=== PATIENT | male | born 1960 | race African-American/Black ===

== ENCOUNTER 2017-11-09 21:05 | Emergency (ER) | payer OTHER ==
[~2017-11-09] VITALS: Ht 172.7 cm; Wt 97.1 kg
[~2017-11-09 21:05] MED LIST: ASPIRIN EC81 M1 PO; ATORVASTATIN CA40 MG PO; BAYER BACK & B1 EACH PO; CALCIUM CARBO1000 MG PO; CHANTIX1 MG; FLEXERIL PO; GLUCOPHAGE XR500 MG PO; GLUCOPHAGE500 MG PO; HYDROCODON-ACE1 EAC7 PO; LEVAQUIN 500 M500 M2; LEVAQUIN 500 M500 M2 PO; LISINOPRIL20 MG PO; LISINOPRIL40 MG PO; MEDROLDOSEPACK; MULTIVITAMINS PO; NABUMETONE 750750 M1 PO; NORCO 5-325 TA1 EACH PO; PREDNISONE 20 M20 M1 PO; PRINIVIL20 MG PO; PROAIR HFA8.5 GM IH; PROAIR HFA8.5 GM INH; PROMETHAZINE-C120 ML PO; PROVENTIL HFA6.7 G1; TOPROL XL25 MG PO; TOPROL XL50 MG PO; Tamiflu PO
[2017-11-09] MEDS ORDERED: PREDNISONE 20 M20 MG PO (21:41)
[2017-11-09] MEDS ORDERED: TRIAMCINOLONE A80 G2 TOP (21:41)
== END 2017-11-09 21:49 | disposition home or self-care (01) ==
LOC: ER 21:05
DX: L25.9 Unspecified contact dermatitis, unspecified cause (principal); I10 Essential (primary) hypertension; E11.9 Type 2 diabetes mellitus without complications; E78.5 Hyperlipidemia, unspecified; F17.210 Nicotine dependence, cigarettes, uncomplicated

== ENCOUNTER 2018-07-26 15:27 | Emergency (ER) | payer OTHER ==
[~2018-07-26] VITALS: Ht 170.2 cm; Wt 95.3 kg
[~2018-07-26 15:27] MED LIST changes: +ANTIVERT25 MG PO; +PREDNISONE 20 M20 MG PO; +TRIAMCINOLONE A80 G2 TOP; +ZPAK PO
[2018-07-26 17:44] LABS: URINE BILIRUBIN NEGATIVE (Negative); URINE BLOOD NEGATIVE (Negative); URINE CLARITY CLEAR; URINE COLOR YELLOW; URINE GLUCOSE-RANDOM* NEGATIVE (Negative); URINE KETONES NEGATIVE (Negative); URINE LEUKOCYTES-REFLEX NEGATIVE (Negative); URINE NITRITE-REFLEX NEGATIVE (Negative); URINE PROTEIN (DIPSTICK) NEGATIVE (Negative); URINE SPECIFIC GRAVITY 1.015 (1.005-1.035); URINE UROBILINOGEN 0.2 E.U./dl (0.2-1.0)
[2018-07-26 19:11] LABS: ABSOLUTE NEUTROPHILS 3.9 thou/uL (1.4-8.2); BASOPHILS 0.7 % (0.0-2.0); EOSINOPHILS 1.9 % (0.0-3.0); HEMATOCRIT 37.7 % (42.0-52.0); HEMOGLOBIN 12.7 gm/dL (14.0-18.0); LYMPHOCYTES 25.8 % (24.0-44.0); MCH 30.2 pg (26.0-34.0); MCHC 33.7 g/dL (28.0-37.0); MCV 89.6 fL (80.0-100.0); MONOCYTES 7.7 % (1.0-8.0); PLATELET COUNT 212 thou/uL (150-400); POLYS 63.9 % (36.0-66.0); RBC 4.21 mil/uL (4.50-6.00); RDW 14.4 % (10.5-14.5); WBC 6.1 thou/uL (4.0-11.0)
[2018-07-26 19:23] LABS: ANION GAP 6 mmol/L (7-16); BUN 14 mg/dL (7-18); CALCIUM 9.1 mg/dL (8.5-10.1); CHLORIDE 106 mmol/L (98-107); CO2 27 mmol/L (21-32); CREATININE 1.1 mg/dL (0.7-1.3); GLUCOSE 138 mg/dL (74-106); POTASSIUM 4.6 mmol/L (3.5-5.1); SODIUM 139 mmol/L (136-145)
[2018-07-26 19:30] LABS: ALBUMIN 3.7 g/dL (3.4-5.0); SGOT 17 U/L (15-37); SGPT 30 U/L (30-65); TOTAL BILIRUBIN 0.3 mg/dL (<0.1-1.0); TOTAL PROTEIN 6.9 g/dL (6.4-8.2); TROPONIN-I <0.06 ng/mL (<0.06)
[2018-07-26] MEDS ORDERED: ONDANSETRON HCL4 M2 PO (21:48)
[2018-07-26] MEDS ORDERED: MECLIZINE HCL25 MG PO (21:48)
[2018-07-26 22:46] VITALS: BP 129/91
--- NOTE | 2018-07-27 13:39 | EKG ---
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1960 Requested By: Lori Mathew Order Number: [id number] MD: Deion Tlilman Measurements Intervals [place] Rate: 79 P: 29 [place]: 160 QRS: 45 QRSD: 88 T: -1 QT: 368 QTc: 422 Interpretive Statements Sinus rhythm Probable anteroseptal infarct, old Borderline T abnormalities, inferior leads Compared to ECG 01/25/2018 01:14:47 T-wave abnormality now present Electronically Signed On 07-27-2018 13:39:27 CDT by Deion Tillman [email or web address] ��������������������������������������������� <ELECTRONICALLY SIGNED> ���������������������������������������� By: Deion Tillman MD, [facility] ��������������������������������������������� 07/27/18 1339 165 56 Deion Tillman MD, [facility] /EPI
== END 2018-07-26 22:48 | disposition home or self-care (01) ==
LOC: ER 15:27
PROVIDERS: Physician Assistant
DX: R42 Dizziness and giddiness (principal); R09.81 Nasal congestion; H92.09 Otalgia, unspecified ear; F17.210 Nicotine dependence, cigarettes, uncomplicated; E11.9 Type 2 diabetes mellitus without complications; I10 Essential (primary) hypertension; E78.5 Hyperlipidemia, unspecified

== ENCOUNTER → 2019-07-28 | Outpatient (CLI) | payer OTHER ==
[~2019-07-28] MED LIST changes: +MECLIZINE HCL25 MG PO; +ONDANSETRON HCL4 M2 PO
== END ==
LOC: RAD 12:38
DX: M79.672 Pain in left foot (principal)

== ENCOUNTER → 2019-07-31 | Outpatient (CLI) | payer OTHER | LOC: RAD 14:47 | DX: J98.4 Other disorders of lung (principal); M25.78 Osteophyte, vertebrae ==

== ENCOUNTER 2019-11-16 19:46 | Inpatient (IN) | payer OTHER ==
[~2019-11-16] VITALS: Ht 170.2 cm; Wt 92.5 kg
[2019-11-16 19:52] VITALS: BP 115/72
[2019-11-16 20:34] LABS: ABSOLUTE NEUTROPHILS 9.3 thou/uL (1.4-8.2); BASOPHILS 0.6 % (0.0-2.0); EOSINOPHILS 0.3 % (0.0-3.0); HEMATOCRIT 39.8 % (42.0-52.0); HEMOGLOBIN 13.5 gm/dL (14.0-18.0); MCH 30.8 pg (26.0-34.0); MCHC 33.8 g/dL (28.0-37.0); MCV 91.1 fL (80.0-100.0); MONOCYTES 4.6 % (1.0-8.0); PLATELET COUNT 253 thou/uL (150-400); POLYS 81.5 % (36.0-66.0); RBC 4.36 mil/uL (4.50-6.00); RDW 13.9 % (10.5-14.5); WBC 11.4 thou/uL (4.0-11.0)
[2019-11-16 20:38] LABS: URINE BILIRUBIN NEGATIVE (Negative); URINE BLOOD NEGATIVE (Negative); URINE CLARITY CLEAR; URINE COLOR YELLOW; URINE GLUCOSE-RANDOM* NEGATIVE (Negative); URINE KETONES NEGATIVE (Negative); URINE LEUKOCYTES-REFLEX NEGATIVE (Negative); URINE NITRITE-REFLEX NEGATIVE (Negative); URINE PROTEIN (DIPSTICK) NEGATIVE (Negative); URINE SPECIFIC GRAVITY 1.025 (1.005-1.035); URINE UROBILINOGEN 0.2 E.U./dl (0.2-1.0)
[2019-11-16 20:42] LABS: ANION GAP 13 mmol/L (7-16); BUN 38 mg/dL (7-18); CALCIUM 10.2 mg/dL (8.5-10.1); CHLORIDE 102 mmol/L (98-107); CO2 22 mmol/L (21-32); CREATININE 2.7 mg/dL (0.7-1.3); GLUCOSE 134 mg/dL (74-106); POTASSIUM 5.3 mmol/L (3.5-5.1); SODIUM 137 mmol/L (136-145)
[2019-11-16 20:52] LABS: ALBUMIN 4.9 g/dL (3.4-5.0); LIPASE 111 U/L (73-393); SGOT 34 U/L (15-37); SGPT 33 U/L (30-65); TOTAL BILIRUBIN 0.9 mg/dL (0.2-1.0); TOTAL PROTEIN 8.3 g/dL (6.4-8.2); TROPONIN-I <0.06 ng/mL (<0.06)
[2019-11-16 23:36] LABS: CALCIUM 8.5 mg/dL (8.5-10.1); CREATININE 2.3 mg/dL (0.7-1.3)
[2019-11-16 23:38] LABS: POTASSIUM 6.5 mmol/L (3.5-5.1)
[2019-11-17 00:16] LABS: CALCIUM 8.8 mg/dL (8.5-10.1); CREATININE 2.4 mg/dL (0.7-1.3)
[2019-11-17 00:18] LABS: POTASSIUM 6.8 mmol/L (3.5-5.1)
[2019-11-17 02:03] VITALS: BP 130/79
[2019-11-17 02:50] VITALS: BP 130/79
[2019-11-17 02:52] LABS: CHOLESTEROL 142 mg/dL (<200); HDL CHOLESTEROL 48 mg/dL (>40); LDL CHOLESTEROL 84 mg/dL (<100); TRIGLYCERIDE 52 mg/dL (<150); VLDL 10 mg/dL (<40)
[2019-11-17 03:10] LABS: SERUM ASSESSMENT Clear
[2019-11-17 03:35] VITALS: BP 123/73
--- NOTE | 2019-11-17 05:16 | NUR ---
Pt. arrived to the unit from the emergency room accompanied by staff. Admission assessment and history is completed. No c/o of any nausea. He is alert and oriented, vss. Pt. oriented to staff and room.
[2019-11-17 05:25] LABS: CALCIUM 8.7 mg/dL (8.5-10.1); CREATININE 2.1 mg/dL (0.7-1.3)
[2019-11-17 05:38] LABS: POTASSIUM 4.4 mmol/L (3.5-5.1)
[2019-11-17 07:15] VITALS: BP 130/83
--- NOTE | 2019-11-17 07:49 | EKG ---
[facility] [place] [address] ELECTROCARDIOGRAM REPORT Name: MACARENA ARROYO Room #: 451-P ADM IN M.R.#: [id number] Admission: 11/17/19 Attend Phys: Bhupinder Auguste MD Discharge: Date of : 60 Report #: [id number] THIS REPORT FOR: cc: Carmine Guy James A. DO Lundgren, Craig H. 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 : 1960 Requested By: Jameel Calderon Order Number: [id number] MD: Deion Tillman Measurements Intervals [place] Rate: 89 P: 55 [place]: 156 QRS: 69 QRSD: 80 T: 26 QT: 322 QTc: 392 Interpretive Statements Sinus rhythm Possible anteroseptal infarct, old Compared to ECG 07/26/2018 16:57:56 No significant change was found Electronically Signed On 11-17-2019 7:49:08 CDT by Deion Tillman [email or web address] <ELECTRONICALLY SIGNED> By: Deion Tillman MD, [facility] 11/17/19 0749 16 16 Deion Tillman MD, [facility] /EPI
--- NOTE | 2019-11-17 13:30 | NUR ---
ASSUMED CARE AROUND 0700, PT A&O X 4, NO ACUTE DISTRESS NOTED. VSS, O2 ON RA. TELE AT NSR. DENIES ANY PAIN OR DISCOMFORT. IV TO LFA INFUSING NS AT 150ML/H. BG ACHS WITH SS NEEDED. UP AD HALLEY, USES BR. RESTING IN BED, CALL LIGHT WITHIN REACH, WILL CONTINUE TO MONITOR PER POC.
--- NOTE | 2019-11-17 15:28 | EKG ---
[facility] [place] [address] ELECTROCARDIOGRAM REPORT Name: MACARENA ARROYO Room #: 451-P ADM IN M.R.#: [id number] Admission: 11/17/19 Attend Phys: Bhupinder Auguste MD Discharge: Date of : 60 Report #: [id number] THIS REPORT FOR: cc: Carmine Guy James A. 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1960 Requested By: Jameel Calderon Order Number: [id number] MD: Deion Tillman Measurements Intervals [place] Rate: 89 P: 72 ID: 167 QRS: 55 QRSD: 87 T: 22 QT: 340 QTc: 414 Interpretive Statements Sinus rhythm Anteroseptal infarct, old Compared to ECG 11/16/2019 20:17:38 No significant changes Electronically Signed On 11-17-2019 15:28:11 CDT by Deion Tillman [email or web address] <ELECTRONICALLY SIGNED> By: Deion Tillman MD, [facility] 11/17/19 1528 0021 0021 Deion Tillman MD, [facility] /EPI
[2019-11-17 15:47] VITALS: BP 134/71
[2019-11-17 19:21] VITALS: BP 133/86
--- NOTE | 2019-11-17 20:04 | NUR ---
Assumed pt care late in the afternoon, VS stable. blood sugar monitoring done no coverage needed, POC followed with no sings or verbalizations of distress noted. Endorsed to the night nurse.
[2019-11-18 01:06] LABS: GLYCOHEMOGLOBIN (HGB A1C) 5.6 % (4.8-5.6)
[2019-11-18 04:00] VITALS: BP 134/92
--- NOTE | 2019-11-18 04:32 | NUR ---
Pt. rested quietly at intervals during the night when checked on during frequent rounds. He offers no c/o of nausea. Po tylenol given (see emar) for c/o a headache with relief noted.
[2019-11-18 07:28] VITALS: BP 137/83
[2019-11-18 09:59] LABS: CALCIUM 8.5 mg/dL (8.5-10.1); CREATININE 1.3 mg/dL (0.7-1.3); POTASSIUM 4.4 mmol/L (3.5-5.1)
[2019-11-18 11:46] VITALS: BP 137/83
[2019-11-18] MEDS ORDERED: WORK EXCUSE (12:33)
--- NOTE | 2019-11-18 13:43 | NUR ---
Assumed pt care this am, VS stable diet and medications are well tolerated. POC followed with no signs or verbalizations of distress noted.DC indtructions given to the and pt, IV removed. Pt is now dc and left with the .
== END 2019-11-18 13:44 | disposition home or self-care (01) | DRG 683 ==
LOC: ER 19:46 → EROBS 11-17 01:13 → 4W 11-17 01:13
PROVIDERS: Emergency Medicine; Nurse Practitioner Family; ADMIT Hospitalist; ATTEND Hospitalist
DX: N17.9 Acute kidney failure, unspecified (principal); E87.1 Hypo-osmolality and hyponatremia; T67.5XXA Heat exhaustion, unspecified, initial encounter; E87.5 Hyperkalemia; I10 Essential (primary) hypertension; E11.9 Type 2 diabetes mellitus without complications; F17.210 Nicotine dependence, cigarettes, uncomplicated; E86.0 Dehydration; E78.5 Hyperlipidemia, unspecified; Z87.01 Personal history of pneumonia (recurrent); Z79.82 Long term (current) use of aspirin; Z79.84 Long term (current) use of oral hypoglycemic drugs; Z79.899 Other long term (current) drug therapy; X58.XXXA Exposure to other specified factors, initial encounter; Y93.53 Activity, golf; Y92.89 Other specified places as the place of occurrence of the external cause; Y99.8 Other external cause status
CPT/HCPCS: 10045

== ENCOUNTER 2020-08-09 10:45 | Emergency (ER) | payer BC, OTHER ==
[~2020-08-09] VITALS: Ht 170.2 cm; Wt 96.2 kg
[~2020-08-09 10:45] MED LIST changes: +WORK EXCUSE
[2020-08-09] MEDS ORDERED: FLONASE 0.05%50 MCG NASAL (11:01)
[2020-08-09 12:02] VITALS: BP 138/73
--- NOTE | 2020-08-09 12:08 | EKG ---
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 : 1960 Requested By: Carmine Walters Order Number: [id number] MD: Eros Kirkpatrick Measurements Intervals [place] Rate: 81 P: 43 [place]: 169 QRS: 35 QRSD: 84 T: 2 QT: 345 QTc: 401 Interpretive Statements Sinus rhythm Probable left atrial enlargement Probable anteroseptal infarct, old Compared to ECG 11/17/2019 00:21:18 No significant changes Electronically Signed On 08-09-2020 12:08:02 CDT by Eros Kirkpatrick [email or web address] <ELECTRONICALLY SIGNED> By: Eros Kirkpatrick MD, [facility] 08/09/20 1208 1129 1129 Eros Kirkpatrick MD, [facility] /EPI
== END 2020-08-09 12:03 | disposition home or self-care (01) ==
LOC: ER 10:45
DX: S49.92XA Unspecified injury of left shoulder and upper arm, initial encounter (principal); I10 Essential (primary) hypertension; E11.9 Type 2 diabetes mellitus without complications; E78.5 Hyperlipidemia, unspecified; F17.210 Nicotine dependence, cigarettes, uncomplicated; Z79.82 Long term (current) use of aspirin; Z79.899 Other long term (current) drug therapy; X50.1XXA Overexertion from prolonged static or awkward postures, initial encounter; Y93.89 Activity, other specified; Y92.89 Other specified places as the place of occurrence of the external cause; Y99.8 Other external cause status

== ENCOUNTER 2021-02-27 10:48 | Emergency (ER) | payer BC, OTHER ==
[~2021-02-27] VITALS: Ht 170.2 cm; Wt 96.2 kg
[~2021-02-27 10:48] MED LIST changes: +FLONASE 0.05%50 MCG NASAL
[2021-02-27 11:16] LABS: ABSOLUTE NEUTROPHILS 2.9 thou/uL (1.4-8.2); BASOPHILS 0.5 % (0.0-2.0); EOSINOPHILS 2.4 % (0.0-3.0); HEMATOCRIT 39.9 % (42.0-52.0); HEMOGLOBIN 12.8 gm/dL (14.0-18.0); MCH 29.5 pg (26.0-34.0); MCHC 32.1 g/dL (28.0-37.0); MCV 91.8 fL (80.0-100.0); MONOCYTES 11.3 % (1.0-8.0); PLATELET COUNT 224 thou/uL (150-400); POLYS 54.8 % (36.0-66.0); RBC 4.34 mil/uL (4.50-6.00); RDW 14.5 % (10.5-14.5); WBC 5.2 thou/uL (4.0-11.0)
[2021-02-27 11:32] LABS: CALCIUM 9.3 mg/dL (8.5-10.1); CREATININE 1.3 mg/dL (0.7-1.3); POTASSIUM 4.9 mmol/L (3.5-5.1)
[2021-02-27 12:20] VITALS: BP 110/76
--- NOTE | 2021-02-27 15:37 | EKG ---
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 : 1960 Requested By: Stefan Little Order Number: [id number] MD: Eros Kirkpatrick Measurements Intervals [place] Rate: 71 P: 20 [place]: 162 QRS: 25 QRSD: 97 T: 4 QT: 351 QTc: 382 Interpretive Statements Sinus rhythm Borderline T abnormalities, inferior leads Compared to ECG 08/09/2020 11:29:26 T-wave abnormality now present Myocardial infarct finding no longer present Electronically Signed On 02-27-2021 15:37:35 CDT by Eros Kirkpatrick [email or web address] <ELECTRONICALLY SIGNED> By: Eros Kirkpatrick MD, [facility] 02/27/21 1537 D: 10/1052 105 Eros Kirkpatrick MD, [facility] /EPI
== END 2021-02-27 12:20 | disposition home or self-care (01) ==
LOC: ER 10:48
PROVIDERS: Nurse Practitioner
DX: R07.89 Other chest pain (principal); R11.0 Nausea; R10.12 Left upper quadrant pain; I10 Essential (primary) hypertension; E11.9 Type 2 diabetes mellitus without complications; E78.5 Hyperlipidemia, unspecified; F17.210 Nicotine dependence, cigarettes, uncomplicated; Z79.82 Long term (current) use of aspirin; Z79.84 Long term (current) use of oral hypoglycemic drugs; Z79.891 Long term (current) use of opiate analgesic; Z79.899 Other long term (current) drug therapy

== ENCOUNTER → 2021-06-01 | Outpatient (CLI) | payer BC, OTHER | LOC: ULTRA 09:31 | PROVIDERS: ATTEND Family Medicine | DX: N50.812 Left testicular pain (principal); N43.3 Hydrocele, unspecified; N50.89 Other specified disorders of the male genital organs ==